=== PATIENT | female | born 1960 | race Hispanic/Latino ===

== ENCOUNTER 2019-08-26 17:00 | Outpatient (RCR) | payer OTHER | END 2019-08-27 | LOC: PT 17:00 | PROVIDERS: ATTEND Specialist | DX: M75.01 Adhesive capsulitis of right shoulder (principal); M75.81 Other shoulder lesions, right shoulder ==

== ENCOUNTER 2019-09-09 17:00 | Outpatient (RCR) | payer OTHER | END 2019-09-26 | LOC: PT 17:00 | PROVIDERS: ATTEND Specialist | DX: M75.01 Adhesive capsulitis of right shoulder (principal); M77.9 Enthesopathy, unspecified | CPT/HCPCS: 97139 ==